=== PATIENT | female | born 1940 | race Caucasian/White ===

== ENCOUNTER 2018-01-02 22:59 | Emergency (ER) | payer MEDICARE ==
[2018-01-02 23:06] VITALS: TEMP 97.3
[2018-01-02] MEDS ORDERED: cloNIDine HCL 0.2 MG TAB PO STA (23:35)
[2018-01-03 00:32] VITALS: BP 155/73; PULSE 57; RESP 16
[2018-01-03] MEDS ORDERED: cloNIDine 0.1 MG/24HR PATCH TRANSDERM SCH (01:15)
--- NOTE | 2018-01-03 01:15 | ED ---
General Adult HPI - General Chief complaint: Recheck/Abnormal Lab/Rx Stated complaint: BP issue Time Seen by Provider: 01/02/18 23:35 Source: patient Mode of arrival: ambulatory Limitations: no limitations - History of Present Illness Initial comments: Crystal Lugo is a 77-year-old female who presents to the emergency department today for evaluation of hypertension that she noted her home blood pressure monitor. Patient has a history of hypertension for which she is on Lopressor twice a day. Patient also has a history of long-term benzodiazepine use, she was previously taking 50 mg of clonazepam. 2 weeks ago she met with her primary care physician to discuss decreasing her clonazepam. She cut her dose in half last week and then earlier this week cut that dose in half so she is now taking only 12.5 mg. Patient reports that she does have some anxiety with decreasing doses but mostly is concerned about her blood pressure variability. Patient reports that she has checked her blood pressure home since cutting down her Clonopin, she noted that it was elevated and discussed this with her primary care physician who advised her to double her morning dose of metoprolol from 25 mg to 50. Patient has been doing this for a couple of days. Despite being compliant with the new dosing of metoprolol patient notes that she has been experiencing some hypertension. Her blood pressure 3 times a day and noted that the systolics were 177->200 and diastolic was over 100, this prompted her to come to the emergency department for further evaluation. Patient denies any headache, vision change, focal neurologic deficits or weaknesses, she denies any chest pain or shortness of breath. She denies any change in appetite, bowel bladder habits or urine output. She reports that she was taken off the clonazepam due to the development of tremors and unsteady gait, she reports that the symptoms have improved since decreasing her dosing. - Related Data Home Medications Medication Instructions Recorded Confirmed Atorvastatin [Lipitor] 10 mg PO HS 08/18/15 01/02/18 [place] Carbonate 300 mg PO BID 08/18/15 01/02/18 Metoprolol Tartrate 25 mg PO BID 08/18/15 01/02/18 clonazePAM [KlonoPIN] 0.25 mg PO BID PRN 08/18/15 01/02/18 Aspirin [Adult Low Dose Aspirin EC] 81 mg PO DAILY 01/02/16 01/02/18 Multivitamins, Thera [Multivitamin] 1 tab PO DAILY 01/02/16 01/02/18 Omeprazole [PriLOSEC] 20 mg PO AC-BRKFST 01/02/16 01/02/18 Allergies Allergy/AdvReac Type Severity Reaction Status Date / Time Penicillins Allergy Swelling Verified 01/02/18 23:29 Sulfa (Sulfonamide Allergy Swelling Verified 01/02/18 23:29 Antibiotics) Cough Medicine Allergy Rash/Hives Uncoded 01/02/18 23:07 Review of Systems ROS Statement: Those systems with pertinent positive or pertinent negative responses have been documented in the HPI. ROS Other: All systems not noted in ROS Statement are negative. Past Medical History Past Medical History: Hyperlipidemia, Hypertension Additional Past Medical History / Comment(s): BACK PAIN (SEES CHIROPRACTOR), LOW BLOOD SUGAR, STOOL LEAKAGE. History of Any Multi-Drug Resistant Organisms: None Reported Past Surgical History: Heart Catheterization With Stent Additional Past Surgical History / Comment(s): Femoral bypass, right Past Anesthesia/Blood Transfusion Reactions: No Reported Reaction Date of Last Stent Placement:: 08/02/1998 Past Psychological History: Anxiety Smoking Status: Current every day smoker Past Alcohol Use History: None Reported Past Drug Use History: None Reported - Past Family History Brother(s) Additional Family Medical History / Comment(s): BLOOD CLOTS General Exam - General Exam Comments Initial Comments: GENERAL: Patient is well-developed and well-nourished. Patient is nontoxic and well- hydrated and is in no distress. HENT: Normocephalic, Atraumatic. EYES: PERRL PULMONARY: Unlabored respirations. Good breath sounds bilaterally. No audible rales rhonchi or wheezing was noted. CARDIOVASCULAR: There is a regular rate and rhythm without any murmurs gallops or rubs. ABDOMEN: Soft and nontender with normal bowel sounds. SKIN: Skin is clear with no lesions or rashes and otherwise unremarkable. NEUROLOGIC: Patient is alert and oriented x3. Cranial nerves II through XII are grossly intact. Motor and sensory are also intact. Normal speech, volume and content. Symmetrical smile. MUSCULOSKELETAL: Normal extremities with adequate strength and full range of motion. No lower extremity swelling or edema. No calf tenderness. LYMPHATICS: No significant lymphadenopathy is noted PSYCHIATRIC: Normal psychiatric evaluation. Limitations: no limitations Limitations: no limitations Course Vital Signs 01/02/18 01/02/18 01/03/18 23:02 23:51 00:32 Temperature 97.3 F L Pulse Rate 62 57 L Respiratory 18 16 Rate Blood Pressure 206/93 180/75 155/73 O2 Sat by Pulse 98 96 Oximetry Medical Decision Making - Medical Decision Making Patient was seen and evaluated history was obtained from the patient has been at bedside by mouth clonidine was ordered and spread pressure improved significantly after clonidine, I suspect that her blood pressure elevation is secondary to benzodiazepine withdrawal. She's not having any other concerning symptoms. I will prescribe a Catapres patch and advised patient to follow up with her primary care physician on Friday. All questions pertaining to care were answered best my ability. Return parameters were discussed and the patient was discharged home in stable condition. Disposition Clinical Impression: Benzodiazepine withdrawal, HTN (hypertension) Disposition: HOME SELF-CARE Condition: Good Is patient prescribed a controlled substance at d/c from ED?: No Referrals: Fuad Costa DO [Primary Care Provider] - 1-2 days Time of Disposition: 01:14
== END 2018-01-03 01:37 | disposition home or self-care (01) ==
LOC: EC 22:59
DX: I10 Essential (primary) hypertension (principal); F13.239 Sedative, hypnotic or anxiolytic dependence with withdrawal, unspecified; E78.5 Hyperlipidemia, unspecified; F41.9 Anxiety disorder, unspecified; F17.200 Nicotine dependence, unspecified, uncomplicated; Z79.82 Long term (current) use of aspirin; Z79.899 Other long term (current) drug therapy; Z88.0 Allergy status to penicillin; Z88.2 Allergy status to sulfonamides; Z88.8 Allergy status to other drugs, medicaments and biological substances
CPT/HCPCS: 99283

== ENCOUNTER 2020-11-03 08:18 | Emergency (ER) | payer MEDICARE ==
[2020-11-03 08:23] VITALS: TEMP 97.8
[2020-11-03] MEDS ORDERED: SODIUM CHLORIDE 0.9% 500 ML 500 ML IV STA (08:48)
[2020-11-03 09:10] VITALS: RESP 18
--- NOTE | 2020-11-03 09:12 | ED ---
General Adult HPI - General Chief complaint: Weakness Stated complaint: Fall/Shakiness Time Seen by Provider: 11/03/20 08:27 Source: patient, RN notes reviewed Mode of arrival: ambulatory Limitations: no limitations - History of Present Illness Initial comments: 80-year-old female with a past medical history hyperlipidemia, hypertension presents to the emergency room for a chief complaint of weakness. Patient reports that she woke up and was weak today. She went to get off the couch this morning in her legs gave out. States she had difficulty getting up because of this weakness. Patient states the weakness is generalized. She states she was able to walk out of the car. She denies any other symptoms at his cough, congestion, abdominal pain, fevers, dysuria. Patient has no other complaints at this time including shortness of breath, chest pain, abdominal pain, nausea or vomiting, headache, or visual changes. - Related Data Home Medications Medication Instructions Recorded Confirmed Atorvastatin [Lipitor] 10 mg PO HS 08/18/15 01/02/18 [place] Carbonate 300 mg PO BID 08/18/15 01/02/18 Metoprolol Tartrate 25 mg PO BID 08/18/15 01/02/18 clonazePAM [KlonoPIN] 0.25 mg PO BID PRN 08/18/15 01/02/18 Aspirin [Adult Low Dose Aspirin EC] 81 mg PO DAILY 01/02/16 01/02/18 Multivitamins, Thera [Multivitamin] 1 tab PO DAILY 01/02/16 01/02/18 Omeprazole [PriLOSEC] 20 mg PO AC-BRKFST 01/02/16 01/02/18 Allergies Allergy/AdvReac Type Severity Reaction Status Date / Time codeine Allergy Rash/Hives Verified 11/03/20 08:23 Penicillins Allergy Swelling Verified 11/03/20 08:23 Sulfa (Sulfonamide Allergy Swelling Verified 11/03/20 08:23 Antibiotics) Cough Medicine Allergy Rash/Hives Uncoded 11/03/20 08:23 Review of Systems ROS Statement: Those systems with pertinent positive or pertinent negative responses have been documented in the HPI. ROS Other: All systems not noted in ROS Statement are negative. Past Medical History Past Medical History: Hyperlipidemia, Hypertension Additional Past Medical History / Comment(s): BACK PAIN (SEES CHIROPRACTOR), LOW BLOOD SUGAR, STOOL LEAKAGE. History of Any Multi-Drug Resistant Organisms: None Reported Past Surgical History: Heart Catheterization With Stent Additional Past Surgical History / Comment(s): Femoral bypass, right Past Anesthesia/Blood Transfusion Reactions: No Reported Reaction Date of Last Stent Placement:: 08/02/1998 Past Psychological History: Anxiety Smoking Status: Current every day smoker Past Alcohol Use History: None Reported Past Drug Use History: None Reported - Past Family History Brother(s) Additional Family Medical History / Comment(s): BLOOD CLOTS General Exam Limitations: no limitations General appearance: alert, in no apparent distress Head exam: Present: atraumatic, normocephalic, normal inspection Eye exam: Present: normal appearance, PERRL, EOMI. Absent: scleral icterus, conjunctival injection, periorbital swelling ENT exam: Present: normal exam, mucous membranes moist Neck exam: Present: normal inspection, full ROM. Absent: tenderness, meningismus, lymphadenopathy Respiratory exam: Present: normal lung sounds bilaterally. Absent: respiratory distress, wheezes, rales, rhonchi, stridor Cardiovascular Exam: Present: regular rate, normal rhythm, normal heart sounds. Absent: systolic murmur, diastolic murmur, rubs, gallop, clicks GI/Abdominal exam: Present: soft, normal bowel sounds. Absent: distended, tenderness, guarding, rebound, rigid Neurological exam: Present: alert, oriented X3, normal gait, other (GCS 15) Expanded Patient oriented to: Present: person, place, time Speech: Present: fluid speech Cranial nerves: EOM's Intact: Normal, Nystagmus: Normal, Facial Sensation: Normal Upper motor neuron: Pronator Drift: Normal Sensory exam: Upper Extremity Light Touch: Normal, Upper Extremity Pin Prick: Normal, Lower Extremity Light Touch: Normal, Lower Extremity Pin Prick: Normal Motor strength exam: RUE: 4, LUE: 4, RLE: 4, LLE: 4 Eye Response: (4) open spontaneously Motor Response: (6) obeys commands Verbal Response: (5) oriented Lazaro Total: 15 Course Vital Signs 11/03/20 11/03/20 11/03/20 08:20 09:09 09:54 Temperature 97.8 F Pulse Rate 55 L 61 60 Respiratory 20 18 18 Rate Blood Pressure 135/72 138/71 186/73 O2 Sat by Pulse 97 97 97 Oximetry 11/03/20 10:50 Temperature Pulse Rate 60 Respiratory 18 Rate Blood Pressure 146/80 O2 Sat by Pulse 97 Oximetry EKG Findings - EKG Comments: EKG Findings:: Normal sinus rhythm, ventricular rate 60, NC interval 122, QTc 466 Medical Decision Making - Medical Decision Making Vitals are stable. Patient well-appearing. EKG is nonischemic. CBC shows mild cytosis, nonspecific. CMP shows mild dehydration, patient was given fluids. Troponin is normal. Glucose is normal. Urinalysis is unremarkable. Chest x- ray shows no acute process. CT brain shows no acute intracranial process. Coronavirus is negative. Patient reevaluated, is able to ambulate without assistance. She is doing much better. No shakiness. Patient's daughter is at bedside and states she will stay with her today and her other daughter will be there at night. At this time patient is stable for discharge home. It is possible the patient's new eyedrops cause a drop in blood pressure given she takes metoprolol as well which may have caused her weakness. She will try to stagger these throughout the day. She'll return here for any worsening symptoms. - Lab Data Result diagrams: 11/03/20 09:04 11/03/20 09:04 Lab Results 11/03/20 11/03/20 11/03/20 Range/Units 09:04 09:04 09:04 WBC 13.1 H (3.8-10.6) k/uL RBC 4.80 (3.80-5.40) m/uL Hgb 15.6 (11.4-16.0) gm/dL Hct 46.1 H (34.0-46.0) % MCV 95.9 (80.0-100.0) fL MCH 32.5 (25.0-35.0) pg MCHC 33.9 (31.0-37.0) g/dL RDW 12.4 (11.5-15.5) % Plt Count 277 (150-450) k/uL MPV 8.2 Neutrophils % 78 % Lymphocytes % 13 % Monocytes % 5 % Eosinophils % 2 % Basophils % 0 % Neutrophils # 10.3 H (1.3-7.7) k/uL Lymphocytes # 1.8 (1.0-4.8) k/uL Monocytes # 0.7 (0-1.0) k/uL Eosinophils # 0.2 (0-0.7) k/uL Basophils # 0.0 (0-0.2) k/uL PT 9.7 (9.0-12.0) sec INR 0.9 (<1.2) APTT 24.9 (22.0-30.0) sec Sodium (137-145) mmol/L Potassium (3.5-5.1) mmol/L Chloride (98-107) mmol/L Carbon Dioxide (22-30) mmol/L Anion Gap mmol/L BUN (7-17) mg/dL Creatinine (0.52-1.04) mg/dL Est GFR (CKD-EPI)AfAm (>60 ml/min/1.73 sqM) Est GFR (CKD-EPI)NonAf (>60 ml/min/1.73 sqM) Glucose (74-99) mg/dL Plasma Lactic Acid Jose (0.7-2.0) mmol/L Calcium (8.4-10.2) mg/dL Magnesium (1.6-2.3) mg/dL Total Bilirubin (0.2-1.3) mg/dL AST (14-36) U/L ALT (4-34) U/L Alkaline Phosphatase (38-126) U/L Troponin I (0.000-0.034) ng/mL Total Protein (6.3-8.2) g/dL Albumin (3.5-5.0) g/dL Urine Color Yellow Urine Appearance Cloudy H (Clear) Urine pH 6.5 (5.0-8.0) Ur Specific [place] 1.012 (1.001-1.035) Urine Protein 1+ H (Negative) Urine Glucose (UA) Negative (Negative) Urine Ketones Negative (Negative) Urine Blood Small H (Negative) Urine Nitrite Negative (Negative) Urine Bilirubin Negative (Negative) Urine Urobilinogen <2.0 (<2.0) mg/dL Ur Leukocyte Esterase Negative (Negative) Urine RBC 8 H (0-5) /hpf Urine WBC 2 (0-5) /hpf Ur Squamous Epith Cells 6 H (0-4) /hpf Amorphous Sediment Occasional H (None) /hpf Urine Bacteria Rare H (None) /hpf Urine Mucus Occasional H (None) /hpf Coronavirus (PCR) (Not Detectd) 0711/03/20 11/03/20 Range/Units 09:04 09:04 09:04 WBC (3.8-10.6) k/uL RBC (3.80-5.40) m/uL Hgb (11.4-16.0) gm/dL Hct (34.0-46.0) % MCV (80.0-100.0) fL MCH (25.0-35.0) pg MCHC (31.0-37.0) g/dL RDW (11.5-15.5) % Plt Count (150-450) k/uL MPV Neutrophils % % Lymphocytes % % Monocytes % % Eosinophils % % Basophils % % Neutrophils # (1.3-7.7) k/uL Lymphocytes # (1.0-4.8) k/uL Monocytes # (0-1.0) k/uL Eosinophils # (0-0.7) k/uL Basophils # (0-0.2) k/uL PT (9.0-12.0) sec INR (<1.2) APTT (22.0-30.0) sec Sodium 135 L (137-145) mmol/L Potassium 4.3 (3.5-5.1) mmol/L Chloride 102 (98-107) mmol/L Carbon Dioxide 23 (22-30) mmol/L Anion Gap 10 mmol/L BUN 23 H (7-17) mg/dL Creatinine 0.97 (0.52-1.04) mg/dL Est GFR (CKD-EPI)AfAm 65 (>60 ml/min/1.73 sqM) Est GFR (CKD-EPI)NonAf 56 (>60 ml/min/1.73 sqM) Glucose 116 H (74-99) mg/dL Plasma Lactic Acid Jose 1.3 (0.7-2.0) mmol/L Calcium 10.9 H (8.4-10.2) mg/dL Magnesium 2.3 (1.6-2.3) mg/dL Total Bilirubin 0.9 (0.2-1.3) mg/dL AST 25 (14-36) U/L ALT 16 (4-34) U/L Alkaline Phosphatase 76 (38-126) U/L Troponin I 0.015 (0.000-0.034) ng/mL Total Protein 6.8 (6.3-8.2) g/dL Albumin 4.5 (3.5-5.0) g/dL Urine Color Urine Appearance (Clear) Urine pH (5.0-8.0) Ur Specific [place] (1.001-1.035) Urine Protein (Negative) Urine Glucose (UA) (Negative) Urine Ketones (Negative) Urine Blood (Negative) Urine Nitrite (Negative) Urine Bilirubin (Negative) Urine Urobilinogen (<2.0) mg/dL Ur Leukocyte Esterase (Negative) Urine RBC (0-5) /hpf Urine WBC (0-5) /hpf Ur Squamous Epith Cells (0-4) /hpf Amorphous Sediment (None) /hpf Urine Bacteria (None) /hpf Urine Mucus (None) /hpf Coronavirus (PCR) (Not Detectd) 11/03/20 Range/Units 09:04 WBC (3.8-10.6) k/uL RBC (3.80-5.40) m/uL Hgb (11.4-16.0) gm/dL Hct (34.0-46.0) % MCV (80.0-100.0) fL MCH (25.0-35.0) pg MCHC (31.0-37.0) g/dL RDW (11.5-15.5) % Plt Count (150-450) k/uL MPV Neutrophils % % Lymphocytes % % Monocytes % % Eosinophils % % Basophils % % Neutrophils # (1.3-7.7) k/uL Lymphocytes # (1.0-4.8) k/uL Monocytes # (0-1.0) k/uL Eosinophils # (0-0.7) k/uL Basophils # (0-0.2) k/uL PT (9.0-12.0) sec INR (<1.2) APTT (22.0-30.0) sec Sodium (137-145) mmol/L Potassium (3.5-5.1) mmol/L Chloride (98-107) mmol/L Carbon Dioxide (22-30) mmol/L Anion Gap mmol/L BUN (7-17) mg/dL Creatinine (0.52-1.04) mg/dL Est GFR (CKD-EPI)AfAm (>60 ml/min/1.73 sqM) Est GFR (CKD-EPI)NonAf (>60 ml/min/1.73 sqM) Glucose (74-99) mg/dL Plasma Lactic Acid Jose (0.7-2.0) mmol/L Calcium (8.4-10.2) mg/dL Magnesium (1.6-2.3) mg/dL Total Bilirubin (0.2-1.3) mg/dL AST (14-36) U/L ALT (4-34) U/L Alkaline Phosphatase (38-126) U/L Troponin I (0.000-0.034) ng/mL Total Protein (6.3-8.2) g/dL Albumin (3.5-5.0) g/dL Urine Color Urine Appearance (Clear) Urine pH (5.0-8.0) Ur Specific [place] (1.001-1.035) Urine Protein (Negative) Urine Glucose (UA) (Negative) Urine Ketones (Negative) Urine Blood (Negative) Urine Nitrite (Negative) Urine Bilirubin (Negative) Urine Urobilinogen (<2.0) mg/dL Ur Leukocyte Esterase (Negative) Urine RBC (0-5) /hpf Urine WBC (0-5) /hpf Ur Squamous Epith Cells (0-4) /hpf Amorphous Sediment (None) /hpf Urine Bacteria (None) /hpf Urine Mucus (None) /hpf Coronavirus (PCR) Not Detected (Not Detectd) Disposition Clinical Impression: Weakness Disposition: HOME SELF-CARE Condition: Good Instructions (If sedation given, give patient instructions): Weakness (ED) Additional Instructions: Please follow up with primary care in 1-2 days. Drink plenty of fluids. Return to the emergency room for any worsening symptoms. Is patient prescribed a controlled substance at d/c from ED?: No Referrals: Fuad Costa DO [Primary Care Provider] - 1-2 days Time of Disposition: 11:00
[2020-11-03 09:23] LABS: Basophils % (A) 0 %; Eosinophils # (A) 0.2 k/uL (0-0.7); Eosinophils % (A) 2 %; HCT 46.1 % (34.0-46.0); HGB 15.6 gm/dL (11.4-16.0); Lymphocytes # (A) 1.8 k/uL (1.0-4.8); Lymphocytes % (A) 13 %; MCH 32.5 pg (25.0-35.0); MCHC 33.9 g/dL (31.0-37.0); MCV 95.9 fL (80.0-100.0); Mean Platelet Volume 8.2; Monocytes # (A) 0.7 k/uL (0-1.0); Monocytes % (A) 5 %; Neutrophils # (A) 10.3 k/uL (1.3-7.7); Neutrophils % (A) 78 %; Platelet Count 277 k/uL (150-450); RDW 12.4 % (11.5-15.5); WBC 13.1 k/uL (3.8-10.6)
[2020-11-03 09:32] LABS: Albumin 4.5 g/dL (3.5-5.0); Calcium 10.9 mg/dL (8.4-10.2); Magnesium 2.3 mg/dL (1.6-2.3); Potassium 4.3 mmol/L (3.5-5.1); Total Bilirubin 0.9 mg/dL (0.2-1.3); Total Protein 6.8 g/dL (6.3-8.2)
--- NOTE | 2020-11-03 09:35 | XR ---
EXAMINATION TYPE: XR chest 2V DATE OF EXAM: 11/03/2020 COMPARISON: NONE HISTORY: Shortness of breath TECHNIQUE: Frontal and lateral views of the chest are obtained. FINDINGS: Scattered senescent parenchymal changes noted. Hyperinflation compatible with COPD. No evidence for infiltrate. No evidence for atelectasis. Heart size is stable. Mediastinal structures are stable and grossly unremarkable. No evidence for hilar prominence. Degenerative changes dorsal spine. IMPRESSION: 1. No evidence for acute pulmonary disease.
[2020-11-03 09:36] LABS: INR 0.9 (<1.2); Partial Thromboplastin Time 24.9 sec (22.0-30.0); Prothrombin Time 9.7 sec (9.0-12.0)
[2020-11-03 10:10] LABS: Amorphous Sediment,Urine Occasional /hpf; Appearance,Urine Cloudy (Clear); Bacteria,Urine Rare /hpf; Bilirubin,Urine Negative (Negative); Blood,Urine Small (Negative); Color,Urine Yellow; Glucose,Urine (UA) Negative (Negative); Ketones,Urine Negative (Negative); Leukocyte Esterase,Urine Negative (Negative); Mucus,Urine Occasional /hpf; Nitrite,Urine Negative (Negative); PH, Urine 6.5 (5.0-8.0); Protein,Urine 1+ (Negative); RBC,Urine 8 /hpf (0-5); Specific Gravity,Urine 1.012 (1.001-1.035); Squamous Epithelial Cell,Urine 6 /hpf (0-4); Urobilinogen,Urine <2.0 mg/dL (<2.0); WBC,Urine 2 /hpf (0-5)
--- NOTE | 2020-11-03 10:19 | CT ---
EXAMINATION TYPE: CT brain wo con DATE OF EXAM: 11/03/2020 COMPARISON: 09/29/2014 HISTORY: Weakness CT DLP: 1099.[address] of the brain was performed. The ventricles, basal cisterns and sulci overlying the cerebral convexities demonstrate mild enlargem ent. There is no evidence for intracranial hemorrhage or sulcal effacement. There is decreased attenuation about the periventricular white matter and deep white matter of both c erebral hemispheres, compatible with chronic small vessel ischemia. Differential diagnosis does inclu de demyelination. No mass effects are seen.No midline shift. Osseous calvarium is intact. If symptoms persist consider MRI. IMPRESSION: 1. Age related atrophic and chronic small vessel ischemic change without acute intracranial process s een at this time.
[2020-11-03 10:24] VITALS: PULSE 60
[2020-11-03 10:51] VITALS: BP 146/80
== END 2020-11-03 11:04 | disposition home or self-care (01) ==
LOC: EC 08:18
DX: R53.1 Weakness (principal); E78.5 Hyperlipidemia, unspecified; I10 Essential (primary) hypertension; F41.9 Anxiety disorder, unspecified; F17.200 Nicotine dependence, unspecified, uncomplicated; Z20.822 Contact with and (suspected) exposure to COVID-19; Z79.82 Long term (current) use of aspirin; Z88.0 Allergy status to penicillin
CPT/HCPCS: 36415; 70450; 71046; 80053; 81001; 83605; 83735; 84484; 85025; 85610; 85730; 87635; 93005; 96360; 96361; 99285

== ENCOUNTER 2023-09-23 17:00 | Emergency (ER) | payer MEDICARE ==
[2023-09-23 17:07] VITALS: RESP 16; TEMP 98.1
--- NOTE | 2023-09-23 17:20 | ED ---
General Adult HPI - General Source: patient Mode of arrival: wheelchair Limitations: no limitations <Serena Hall - Last Filed: 09/23/23 17:15> <Annalisa Gomez - Last Filed: 09/27/23 11:54> - General Chief complaint: Fall Stated complaint: head injury, fell, blood thinners Time Seen by Provider: 09/23/23 17:10 - History of Present Illness Initial comments: Quick note: 83-year-old female presents to the emergency department for evaluation of fall with head injury. Patient states that she was walking when she tripped over her dog. She states that she fell and hit her head on the coffee table. She did not lose consciousness. She is on aspirin but no other blood thinners. She is up-to-date on tetanus vaccination. (Serena Hall) This is an 83-year-old female with a history of hypertension presents emergency department chief complaint of a fall and subsequent head injury. Patient was originally seen as a quick note. She states that she tripped over her dog landing and hitting the head on a coffee table. Patient denies loss of conscious at time of fall. The patient is denying headaches, nausea, vomiting, blurry vision, double vision. States she has not taken anything for the pain. She denies use of blood thinners. (Annalisa Gomez) - Related Data Home Medications Medication Instructions Recorded Confirmed Atorvastatin [Lipitor] 10 mg PO HS 08/18/15 01/02/18 Cross[place] Carbonate 300 mg PO BID 08/18/15 01/02/18 Metoprolol Tartrate 25 mg PO BID 08/18/15 01/02/18 clonazePAM [KlonoPIN] 0.25 mg PO BID PRN 08/18/15 01/02/18 Aspirin [Adult Low Dose Aspirin EC] 81 mg PO DAILY 01/02/16 01/02/18 Multivitamins, Thera [Multivitamin] 1 tab PO DAILY 01/02/16 01/02/18 Omeprazole [PriLOSEC] 20 mg PO AC-BRKFST 01/02/16 01/02/18 Allergies Allergy/AdvReac Type Severity Reaction Status Date / Time codeine Allergy Rash/Hives Verified 09/23/23 17:06 Penicillins Allergy Swelling Verified 09/23/23 17:06 Sulfa (Sulfonamide Allergy Swelling Verified 09/23/23 17:06 Antibiotics) Cough Medicine Allergy Rash/Hives Uncoded 11/03/20 08:23 Review of Systems ROS Other: All systems not noted in ROS Statement are negative. <Serena Hall - Last Filed: 09/23/23 17:15> ROS Other: All systems not noted in ROS Statement are negative. <Annalisa Gomez - Last Filed: 09/27/23 11:54> ROS Statement: Those systems with pertinent positive or pertinent negative responses have been documented in the HPI. Past Medical History Past Medical History: Hyperlipidemia, Hypertension Additional Past Medical History / Comment(s): BACK PAIN (SEES CHIROPRACTOR), LOW BLOOD SUGAR, STOOL LEAKAGE. tremors History of Any Multi-Drug Resistant Organisms: None Reported Past Surgical History: Heart Catheterization With Stent Additional Past Surgical History / Comment(s): Femoral bypass, right Past Anesthesia/Blood Transfusion Reactions: No Reported Reaction Date of Last Stent Placement:: 08/02/1998 Past Psychological History: Anxiety Smoking Status: Current every day smoker Past Alcohol Use History: None Reported Past Drug Use History: None Reported - Past Family History Brother(s) Additional Family Medical History / Comment(s): BLOOD CLOTS <Serena Hall - Last Filed: 09/23/23 17:15> General Exam Limitations: no limitations <Serena Hall - Last Filed: 09/23/23 17:15> Limitations: no limitations General appearance: alert, in no apparent distress Head exam: Present: other (0.25 cm laceration to the crown of the head) Eye exam: Present: normal appearance, PERRL, EOMI. Absent: scleral icterus, conjunctival injection, periorbital swelling ENT exam: Present: normal exam, mucous membranes moist Neck exam: Present: normal inspection. Absent: tenderness, meningismus, lymphadenopathy Respiratory exam: Present: normal lung sounds bilaterally. Absent: respiratory distress, wheezes, rales, rhonchi, stridor Cardiovascular Exam: Present: regular rate, normal rhythm, normal heart sounds. Absent: systolic murmur, diastolic murmur, rubs, gallop, clicks GI/Abdominal exam: Present: soft, normal bowel sounds. Absent: distended, tenderness, guarding, rebound, rigid Extremities exam: Present: normal inspection, full ROM, normal capillary refill. Absent: tenderness, pedal edema, joint swelling, calf tenderness Back exam: Present: normal inspection Neurological exam: Present: alert, oriented X3, CN II-XII intact Psychiatric exam: Present: normal affect, normal mood Skin exam: Present: warm, dry, intact, normal color, other (see above description for scalp laceration). Absent: rash <Annalisa Gomez - Last Filed: 09/27/23 11:54> - General Exam Comments Initial Comments: Visual Physical Exam Vital signs reviewed General: Well-appearing, nontoxic, no acute distress. Head: Normocephalic, atraumatic Eyes: PERRLA, EOMI ENT: Airway patent Chest: Nonlabored breathing Skin: No visual rash, normal skin tone Neuro: Alert and oriented 3 Musculoskeletal: No gross abnormalities (Serena Hall) Course Vital Signs 09/23/23 09/23/23 17:02 19:12 Temperature 98.1 F Pulse Rate 72 69 Respiratory 16 16 Rate Blood Pressure 178/83 174/81 O2 Sat by Pulse 95 99 Oximetry Medical Decision Making <Serena Hall - Last Filed: 09/23/23 17:15> <Annalisa Gomez - Last Filed: 09/27/23 11:54> - Medical Decision Making Quick note preformed and electronically signed by Serena Hall PA-C (Serena Hall) Was pt. sent in by a medical professional or institution (TARI Stone, MANAGER INSTRUMENTATION, urgent care, hospital, or assisted...) When possible be specific @ -No Did you speak to anyone other than the patient for history (EMS, parent, family, police, friend...)? What history was obtained from this source @ -No Did you review nursing and triage notes (agree or disagree)? Why? @ -I reviewed and agree with nursing and triage notes Were old charts reviewed (outside hosp., previous admission, EMS record, old EKG, old radiological studies, urgent care reports/EKG's, assisted records)? Report findings @ -No old charts were reviewed Differential Diagnosis (chest pain, altered mental status, abdominal pain women, abdominal pain men, vaginal bleeding, weakness, fever, dyspnea, syncope, headache, dizziness, GI bleed, back pain, seizure, CVA, palpatations, mental health, musculoskeletal)? @ -Fall, contusion, subdural hematoma, hematoma, laceration, abrasion, this list is not all inclusive. EKG interpreted by me (3pts min.). @ -none X-rays interpreted by me (1pt min.). @ -None done CT interpreted by me (1pt min.). @ -CT of the brain and C-spine without contrast reveals no evidence for acute intracranial process or fracture. U/S interpreted by me (1pt. min.). @ -None done What testing was considered but not performed or refused? (CT, X-rays, U/S, labs)? Why? @ -None What meds were considered but not given or refused? Why? @ -Was offered pain medication but she has declined at this time. Did you discuss the management of the patient with other professionals (professionals i.e. , PA, MANAGER INSTRUMENTATION, lab, RT, psych nurse, delinquency prevention social worker, oracle manager, teacher, senior credit officer, caseworker protective services)? Give summary @ -No Was smoking cessation discussed for >3mins.? @ -No Was critical care preformed (if so, how long)? @ -No Were there social determinants of health that impacted care today? How? (Homelessness, low income, unemployed, alcoholism, drug addiction, bundy sportation, low edu. Level, literacy, decrease access to med. care, fdc, rehab)? @ -No Was there de-escalation of care discussed even if they declined (Discuss DNR or withdrawal of care, Hospice)? DNR status @ -No What co-morbidities impacted this encounter? (DM, HTN, Smoking, COPD, CAD, Cancer, CVA, ARF, Chemo, Hep., AIDS, mental health diagnosis, sleep apnea, morbid obesity)? @ -None Was patient admitted / discharged? Hospital course, mention meds given and route, prescriptions, significant lab abnormalities, going to OR and other pertinent info. @ -83-year-old female with a fall. Was originally evaluated as a quick note where a CT of the brain and C-spine without contrast was ordered. On examination there are no acute neurological deficits noted. Additionally patient has a 0.25 cm laceration to the anterior crown of the scalp that is not amenable to staple or suture repair due to the size cleansed with sterile water. Was offered pain medication but she has declined this time and that her pain is extremely minimal. CT unremarkable. At this time patient will be discharged home in stable condition. All questions answered at bedside and strict return parameters have been discussed with the patient where she is verbalized understanding. Recommend that patient use Tylenol Motrin at home as needed if symptoms arise. Case discussed with Dr. Vee Undiagnosed new problem with uncertain prognosis? @ -No Drug Therapy requiring intensive monitoring for toxicity (Heparin, Nitro, Insulin, Cardizem)? @ -No Were any procedures done? @ -No Diagnosis/symptom? @ -minor head trauma, fall, laceration Acute, or Chronic, or Acute on Chronic? @ -acute Uncomplicated (without systemic symptoms) or Complicated (systemic symptoms)? @ -uncomplicated Side effects of treatment? @ -No Exacerbation, Progression, or Severe Exacerbation? @ -No Poses a threat to life or bodily function? How? (Chest pain, USA, PA, pneumonia, PE, COPD, DKA, ARF, appy, cholecystitis, CVA, Diverticulitis, Homicidal, Suicidal, threat to staff... and all critical care pts) @ -No (Annalisa Gomez) Disposition <Serena Hall - Last Filed: 09/23/23 17:15> Is patient prescribed a controlled substance at d/c from ED?: No Time of Disposition: 18:52 <Annalisa Gomez - Last Filed: 09/27/23 11:54> Clinical Impression: Fall, Contusion Disposition: HOME SELF-CARE Condition: Critical Instructions (If sedation given, give patient instructions): Fall Prevention for Older Adults (ED) Additional Instructions: Return to the emergency department if your symptoms worsen or not improve. Can use Tylenol Motrin at home for symptomatic relief, use of ice packs. Referrals: Fuad Costa DO [Primary Care Provider] - 1-2 days
--- NOTE | 2023-09-23 18:39 | CT ---
EXAMINATION TYPE: CT brain cspine wo con DATE OF EXAM: 09/23/2023 COMPARISON: None HISTORY: 11/03/2020 CT DLP: 1295.2 mGycm, Automated exposure control for dose reduction was used. CONTRAST: None CT of the brain is performed utilizing 3 mm thick sections through the posterior fossa and 3 mm thick sections through the remaining calvarium. Study is performed within 24 hours of arrival to the hospital. No abnormal hyperdensity is present to suggest an acute intracranial hemorrhage. No mass lesion is evident. No acute infarcts are evident. Patchy periventricular white matter hypodensity is present, likely in the basis of chronic white matter ischemic changes. Ventricles and sulci are appropriate for the patient age. Paranasal sinuses and mastoid air cells within the [id number] are clear. IMPRESSIONS: 1. Chronic appearing patchy periventricular white matter hypodensity, likely on the basis of chronic white matter ischemic changes CT cervical spine. COMPARISON: None CT of the cervical spine is performed in the axial plane at 2 mm thick sections. Reconstructed image s in the coronal, and sagittal plane are reviewed on the computer. No acute fractures are evident. Scoliosis is present. Disc heights are mildly narrowed. Vertebral body heights are preserved. No spinal canal stenosis is evident. No neural foraminal stenosis is evident. IMPRESSION: 1. No acute osseous abnormality cervical spine. 2. Scoliosis of the cervical spine
[2023-09-23 19:12] VITALS: BP 174/81; PULSE 69
== END 2023-09-23 19:15 | disposition home or self-care (01) ==
LOC: EC 17:00
DX: S00.93XA Contusion of unspecified part of head, initial encounter (principal); F17.200 Nicotine dependence, unspecified, uncomplicated; Z88.5 Allergy status to narcotic agent; Z88.2 Allergy status to sulfonamides; Z88.0 Allergy status to penicillin; Z88.8 Allergy status to other drugs, medicaments and biological substances; W01.190A Fall on same level from slipping, tripping and stumbling with subsequent striking against furniture, initial encounter
CPT/HCPCS: 70450; 72125; 99283

== ENCOUNTER 2023-11-17 18:35 | Observation (INO) | payer MEDICARE ==
[~2023-11-17 18:35] MED LIST: ASPIRIN 325 MG TAB ONE; SODIUM CHLORIDE 0.9% 1,000 ML BAG ONE
[2023-11-17] MEDS ORDERED: METOPROLOL TARTRATE 50 MG TAB ONE (21:38)
[2023-11-17] MEDS ORDERED: ATORVASTATIN 40 MG TAB ONE (21:38)
[2023-11-17] MEDS ORDERED: LITHIUM CARBONATE 300 MG CAP ONE (23:25)
[2023-11-17] MEDS ORDERED: hydrOXYzine HCL 25 MG TAB ONE (23:25)
[2023-11-18] MEDS ORDERED: ATORVASTATIN 40 MG TAB ONE ×2 (00:49→21:41)
[2023-11-18] MEDS ORDERED: ASPIRIN 81 MG ONE (10:21)
[2023-11-18] MEDS ORDERED: amLODIPine 5 MG TAB ONE (10:21)
[2023-11-18] MEDS ORDERED: DOCUSATE 100 MG CAP ONE ×2 (10:21→21:41)
[2023-11-18] MEDS ORDERED: METOPROLOL TARTRATE 50 MG TAB ONE ×2 (10:21→21:41)
[2023-11-18] MEDS ORDERED: FAMOTIDINE 20 MG TAB ONE ×2 (10:22→21:41)
[2023-11-18] MEDS ORDERED: PANTOPRAZOLE 40 MG TABLET PO ONE (10:22)
[2023-11-18] MEDS ORDERED: SODIUM CHLORIDE 0.9% 1,000 ML BAG ONE (10:30)
[2023-11-18] MEDS ORDERED: hydrOXYzine HCL 25 MG TAB ONE (10:30)
[2023-11-18] MEDS ORDERED: CLOPIDOGREL 75 MG TAB ONE (16:17)
[2023-11-18] MEDS ORDERED: HEPARIN SODIUM,PORCINE 5,000 UNIT/ML 1 ML VIAL ONE (21:41)
[2023-11-19] MEDS ORDERED: SODIUM CHLORIDE 0.9% 1,000 ML BAG ONE (04:45)
[2023-11-19] MEDS ORDERED: hydrOXYzine HCL 25 MG TAB ONE (04:45)
[2023-11-19] MEDS ORDERED: ACETAMINOPHEN TAB 325 MG TAB ONE (06:27)
[2023-11-19] MEDS ORDERED: HEPARIN SODIUM,PORCINE 5,000 UNIT/ML 1 ML VIAL ONE ×2 (08:50→22:51)
[2023-11-19] MEDS ORDERED: CLOPIDOGREL 75 MG TAB ONE (08:50)
[2023-11-19] MEDS ORDERED: METOPROLOL TARTRATE 50 MG TAB ONE ×2 (08:50→22:50)
[2023-11-19] MEDS ORDERED: ASPIRIN 81 MG ONE (08:50)
[2023-11-19] MEDS ORDERED: PANTOPRAZOLE 40 MG TABLET PO ONE (08:51)
[2023-11-19] MEDS ORDERED: amLODIPine 5 MG TAB ONE (12:51)
[2023-11-19] MEDS ORDERED: hydrALAZINE HCL 25 MG TAB ONE (14:15)
[2023-11-19] MEDS ORDERED: ATORVASTATIN 40 MG TAB ONE (22:50)
[2023-11-20] MEDS ORDERED: ASPIRIN 81 MG ONE (08:18)
[2023-11-20] MEDS ORDERED: HEPARIN SODIUM,PORCINE 5,000 UNIT/ML 1 ML VIAL ONE ×2 (08:18→22:14)
[2023-11-20] MEDS ORDERED: DOCUSATE 100 MG CAP ONE ×2 (08:19→17:14)
[2023-11-20] MEDS ORDERED: PANTOPRAZOLE 40 MG TABLET PO ONE (08:19)
[2023-11-20] MEDS ORDERED: FAMOTIDINE 20 MG TAB ONE (08:19)
[2023-11-20] MEDS ORDERED: CLOPIDOGREL 75 MG TAB ONE (08:19)
[2023-11-20] MEDS ORDERED: METOPROLOL TARTRATE 50 MG TAB ONE ×2 (08:19→22:14)
[2023-11-20] MEDS ORDERED: hydrALAZINE HCL 25 MG TAB ONE (08:54)
[2023-11-20] MEDS ORDERED: hydrOXYzine HCL 25 MG TAB ONE (09:00)
[2023-11-20] MEDS ORDERED: amLODIPine 5 MG TAB ONE (14:39)
[2023-11-20] MEDS ORDERED: ACETAMINOPHEN TAB 325 MG TAB ONE (17:13)
[2023-11-20] MEDS ORDERED: ATORVASTATIN 40 MG TAB ONE (22:14)
[2023-11-21] MEDS ORDERED: hydrOXYzine HCL 25 MG TAB ONE (09:00)
[2023-11-21] MEDS ORDERED: HEPARIN SODIUM,PORCINE 5,000 UNIT/ML 1 ML VIAL ONE (09:49)
[2023-11-21] MEDS ORDERED: CLOPIDOGREL 75 MG TAB ONE (09:50)
[2023-11-21] MEDS ORDERED: PANTOPRAZOLE 40 MG TABLET PO ONE (09:50)
[2023-11-21] MEDS ORDERED: ASPIRIN 81 MG ONE (09:50)
[2023-11-21] MEDS ORDERED: METOPROLOL TARTRATE 50 MG TAB ONE (09:50)
[2023-11-21] MEDS ORDERED: DOCUSATE 100 MG CAP ONE (09:50)
[2023-11-21] MEDS ORDERED: FAMOTIDINE 20 MG TAB ONE (09:51)
--- NOTE | 2023-12-16 20:14 | MR ---
Patient Emily Khan ID [id number] Order # Procedure MR brain wo con EXAMINATION TYPE: MR brain wo/w con DATE OF EXAM: 11/20/2023 8:12 AM CLINICAL INDICATION: Patient with some hair filler stuffing given artifact. evaluate cva, speech difficulty COMPARISON: THIS EXAM WAS READ DURING PACS DOWNTIME, NO PRIORS AVAILABLE. TECHNIQUE: Multi planar, multi sequence imaging was performed through the brain including: T1, T2, In version recovery, susceptibility weighted imaging and gradient echo imaging and Diffusion weighted im aging. FINDINGS: Mild cerebral atrophy with proportional dilation of ventricular system. Diffusion-weighted imaging s hows no evidence of restricted diffusion to suggest acute/subacute infarct. Intracranial arterial humble w voids are maintained. Midline structures show no abnormality. Scattered foci of high T2 signal inte nsity are seen within the periventricular white matter. The susceptibility weighted images do not rev eal any evidence for micro-hemorrhage. The bone marrow signal is within normal limits. Paranasal sinuses and mastoid air cells: No significant paranasal sinus disease. Visualized orbits: Orbital contents are intact. IMPRESSION: 1. No evidence of intracranial mass or acute/subacute infarct 2. Nonspecific white matter changes, likely related to small vessel ischemic disease.
--- NOTE | 2023-12-23 09:11 | CA ---
Transthoracic Echo Report Name: Emily Khan Age: 83 Gender: F : 1940 Exam Date: 11/18/2023 16:13 Exam Location: [facility] Ht (in): 60 Wt (lb): 120 Ordering Physician: Attending/Referring Phys: Manager Physical Kayli Jurado RDCS Procedure CPT: Indications: Cardiac Hx: Technical Quality: Fair Contrast 1: Agitated Saline Total Dose (mL): 10 Contrast 2: Total Dose (mL): MEASUREMENTS (Male / Female) Normal Values 2D ECHO LV Diastolic Diameter PLAX 2.6 cm 4.2 - 5.9 / 3.9 - 5.3 cm LV Systolic Diameter PLAX 1.7 cm IVS Diastolic Thickness 1.4 cm 0.6 - 1.0 / 0.6 - 0.9 cm LVPW Diastolic Thickness 1.2 cm 0.6 - 1.0 / 0.6 - 0.9 cm LV Relative Wall Thickness 1.0 RV Internal Dim ED PLAX 2.3 cm LA Volume 84.3 cm??? 18 - 58 / 22 - 52 cm??? LA Volume Index 55.2 cm???/m??? 16 - 28 cm???/m??? M-MODE Aortic Root Diameter MM 3.0 cm LA Systolic Diameter MM 4.3 cm LA Ao Ratio MM 1.4 AV Cusp Separation MM 1.9 cm DOPPLER AV Peak Velocity 179.5 cm/s AV Peak Gradient 12.9 mmHg AV Mean Velocity 123.5 cm/s AV Mean Gradient 6.8 mmHg AV Velocity Time Integral 40.4 cm LVOT Peak Velocity 109.9 cm/s LVOT Peak Gradient 4.8 mmHg LVOT Velocity Time Integral 26.2 cm MV Area PHT 3.4 cm??? Mitral E Point Velocity 83.8 cm/s Mitral A Point Velocity 57.4 cm/s Mitral E to A Ratio 1.5 MV Deceleration Time 222.4 ms MV E' Velocity 5.6 cm/s Mitral E to MV E' Ratio 15.0 TR Peak Velocity 290.4 cm/s TR Peak Gradient 33.7 mmHg Right Ventricular Systolic Press 38.6 mmHg FINDINGS Left Ventricle Mildly increased left ventricular wall thickness. Left ventricular cavity size normal. Normal left ventricular systolic function with no obvious regional wall motion abnormalities. Left ventricular ejection fraction is estimated at 55-60 %. Grade II diastolic dysfunction. Right Ventricle Normal right ventricular size and function. Mild pulmonary hypertension. Right Atrium Normal right atrial size. Negative agitated saline bubble study for right to left shunt. Left Atrium Severely increased left atrial volume. Mildly increased left atrial area. Mitral Valve Structurally normal mitral valve. Mild mitral annular calcification. Moderate mitral regurgitation. Aortic Valve Trileaflet aortic valve. No aortic stenosis. No aortic regurgitation. Tricuspid Valve Structurally normal tricuspid valve. Mild to moderate tricuspid regurgitation. Pulmonic Valve Structurally normal pulmonic valve. Trace pulmonic regurgitation. Pericardium No pericardial effusion. Aorta Normal size aortic root and proximal ascending aorta. CONCLUSIONS Left ventricular ejection fraction is estimated at 55-60 %. Grade II diastolic dysfunction. Mild LVH No wall motion abnormality Severe LA dilatation Moderate mitral regurgitation. RVSP estimated at 38 mmHg Previewed by: Dr Carter Norton (Electronically Signed) Final Date: 18 November 2023 17:28
--- NOTE | 2023-12-23 12:19 | CT ---
[id number] AMMON WEI : 1940 EXAM: CT angiogram head. CT angiogram neck. DATE: 11/17/2023 17:19 INDICATION: NEURO DEFICIT, AMS COMPARISON: None, please note PACS downtime occurred during the radiologist interpretation of these i mages with limited priors/reports.. TECHNIQUE: Axially acquired helical CT angiogram of the head was obtained with contrast utilizing 65cc of Omnipa que 350 administered intravenously. Axial images are supplemented with 3D reconstructions which were post-processed at an independent workstation. Axially acquired helical CT Angiogram of the Neck was obtained with and without contrast utilizing 65 mL of Omnipaque 350 administered intravenously. Axial images are supplemented with coronal and sagit reilly MIP reconstructions. 3D reconstructions were also performed and were post-processed at an [employer] workstation. Estimated carotid stenosis was calculated using the NASCET criteria. One or more CT dose reduction strategies were utilized during this examination. DLP 1453 mGycm. FINDINGS: No evidence of acute intracranial hemorrhage, mass effect, or midline shift. The ventricles, sulci, a nd cisterns are unremarkable. Bilateral aphakia. Vertebral arteries: The vertebral arteries are patent. Vertebral arteries are codominant.. Basilar artery: The basilar artery is intact. The basilar artery bifurcation is normal. Internal Carotid arteries: The cervical, petrous, cavernous and supraclinoid segments are normal. NICK: Patent with no evidence of aneurysm. ACOM: Present without evidence of aneurysm. MCA: Patent with no evidence of aneurysm. FINE JEWELRY SALES ASSOCIATE: Patent with no evidence of aneurysm. PCOM: Hypoplastic bilaterally. RIGHT CAROTID SYSTEM: The common carotid artery is patent. Carotid bifurcation demonstrates no hemody namically significant stenosis. Internal carotid artery is patent. LEFT CAROTID SYSTEM: The common carotid artery is patent. Carotid bifurcation demonstrates no hemody namically significant stenosis. Internal carotid artery is patent. The origins of the great vessels and vertebral arteries appear unremarkable. Vertebral arteries are c odominant. Left upper lobe calcified granuloma. IMPRESSIONS: 1. No evidence for dissection or aneurysm of the vertebral or carotid arteries. 2. No significant stenosis involving the carotid bifurcations. 3. No evidence of high-grade stenosis or intracranial aneurysm. [facility], , 12/23/2023 12:16 PM
--- NOTE | 2023-12-23 12:19 | CT ---
[id number] AMMON WEI : 1940 EXAM:CT brain without contrast. DATE: 11/17/2023 17:19 INDICATION: NEURO DEFICIT, AMS COMPARISON: None, please note PACS downtime occurred during the radiologist interpretation of these i mages with limited priors/reports.. TECHNIQUE: Multiple axial CT images of the brain were obtained without IV contrast. One or more CT do se reduction strategies were utilized during this examination. Total DLP administered was 1453 mGycm. FINDINGS: Extra-axial spaces: No abnormal extra-axial fluid collections. Ventricular system: Dilatation in proportion to cerebral atrophy. Cerebral parenchyma: Cerebral atrophy. No acute intraparenchymal hemorrhage or mass effect. The palomares -white junction is well differentiated. Scattered hypoattenuating areas are seen within the white mat ter. Cerebellum: Unremarkable. Mass effect: No evidence of midline shift. Intracranial vasculature: Atherosclerotic calcifications of the intracranial vessels. Soft tissues: Normal. Calvarium/osseous structures: No depressed skull fracture. Paranasal sinuses and mastoid air cells: Clear. Visualized orbits: Bilateral aphakia IMPRESSION: 1. No acute intracranial process. 2. Nonspecific white matter changes, likely secondary to chronic small vessel ischemic disease. [facility], , 12/23/2023 12:17 PM
== END 2023-11-21 11:15 | disposition home or self-care (01) ==
LOC: 6NMEDSUR 18:35 → UNDOADMOB 22:35 → 6NMEDSUR 22:35 → UNDODISOB 11-21 18:35
PROVIDERS: ADMIT Family Medicine; ATTEND Family Medicine
DX: R47.81 Slurred speech (principal); R26.9 Unspecified abnormalities of gait and mobility; I10 Essential (primary) hypertension; F31.9 Bipolar disorder, unspecified; E78.5 Hyperlipidemia, unspecified; F41.9 Anxiety disorder, unspecified; F17.200 Nicotine dependence, unspecified, uncomplicated; Z79.82 Long term (current) use of aspirin; Z79.899 Other long term (current) drug therapy
CPT/HCPCS: 70450; 70496; 70498; 70551; 71045; 80061; 80178; 82607; 83036; 93005; 93306